=== PATIENT | male | born 1985 | race American Indian/Alaskan Native ===

== ENCOUNTER 2019-08-28 17:35 | Inpatient (IN) | payer SELFPAY ==
--- NOTE | 2019-08-28 19:33 | Ultrasound Report ---
US testicular doppler comp INDICATION / CLINICAL INFORMATION: TESTICULAR PAIN. COMPARISON: None available. FINDINGS: Testicular size and echogenicity is normal bilaterally. Doppler imaging shows normal testicular blood flow. No epididymal lesions. No evidence of hydrocele. IMPRESSION: 1. No evidence of testicular torsion or other scrotal abnormality. Signer Name: Nicolas Delaney MD Signed: 08/28/2019 7:28 PM Workstation Name: [id number]
[2019-08-28] MEDS ORDERED: SODIUM CHLORIDE 0.9% 1000 ML 1,000 ML IV ONE (19:34)
[2019-08-28 19:43] LABS: Basophils # (Auto) 0.1 K/mm3 (0.0-0.1); Basophils % (Auto) 1.2 % (0.0-1.8); Eosinophils # (Auto) 0.3 K/mm3 (0.0-0.4); Eosinophils % (Auto) 4.4 % (0.0-4.3); Hematocrit 44.7 % (35.5-45.6); Hemoglobin 15.2 gm/dl (11.8-15.2); Lymphocytes # (Auto) 2.5 K/mm3 (1.2-5.4); Mean Corpuscular HGB Conc 34 % (32-34); Mean Corpuscular Volume 87 fl (84-94); Monocytes # (Auto) 0.8 K/mm3 (0.0-0.8); Monocytes % (Auto) 10.6 % (0.0-7.3); Platelet Count 292 K/mm3 (140-440); Red Blood Count 5.13 M/mm3 (3.65-5.03); Red Cell Distribution Width 13.8 % (13.2-15.2)
--- NOTE | 2019-08-28 19:49 | Emergency Department Report ---
ED General Adult HPI - General Chief complaint: Medical Clearance Stated complaint: INGUINAL HERNIA Source: patient Mode of arrival: Ambulatory Limitations: No Limitations - History of Present Illness Initial comments: Patient is a 33-year-old male that presents emergency room with complaints of a inguinal hernia extending down to his right scrotum. Patient states that he's had this for at least 10 years but in the past 3 days it started hurting. Patient states normally he is able to push on his hernia" back into place. Patient states over the last 3 days she has not been able to reduce it. Patient states the pain is a 10 out of 10. Patient states pain is worse with movement and palpation. Patient states the pain is better with rest and not moving and not touching it. Patient denies fever and chills. Patient denies nausea or vomiting. Patient denies constipation. Patient states she's having regular bowel movements. Patient denies any other symptoms or complaints. -: Sudden Location: genitals Severity scale (0 -10): 10 Quality: stabbing Consistency: constant Improves with: rest Worsens with: movement, other Associated Symptoms: denies other symptoms. denies: confusion, chest pain, cough, diaphoresis, fever/chills, headaches, loss of appetite, malaise, nausea/vomiting, rash, seizure, shortness of breath, syncope, weakness - Related Data Home Medications Medication Instructions Recorded Confirmed Last Taken No Known Home Medications [No 08/29/19 08/29/19 Unknown Reported Home Medications] Allergies Allergy/AdvReac Type Severity Reaction Status Date / Time No Known Allergies Allergy Verified 08/28/19 17:53 ED Review of Systems ROS: Stated complaint: INGUINAL HERNIA Other details as noted in HPI Constitutional: denies: chills, fever Eyes: denies: eye pain, eye discharge, vision change ENT: denies: ear pain, throat pain Respiratory: denies: cough, shortness of breath, wheezing Cardiovascular: denies: chest pain, palpitations Endocrine: no symptoms reported Gastrointestinal: denies: abdominal pain, nausea, diarrhea Genitourinary: testicular pain, testicular mass. denies: urgency, dysuria Musculoskeletal: denies: back pain, joint swelling, arthralgia Skin: denies: rash, lesions Neurological: denies: headache, weakness, paresthesias Psychiatric: denies: anxiety, depression Hematological/Lymphatic: denies: easy bleeding, easy bruising ED Past Medical Hx - Past Medical History Previous Medical History?: No - Surgical History Past Surgical History?: No - Family History Family history: no significant - Social History Smoking Status: Current Every Day Smoker Substance Use Type: Alcohol - Medications Home Medications: Home Medications Medication Instructions Recorded Confirmed Last Taken Type No Known Home Medications [No 08/29/19 08/29/19 Unknown History Reported Home Medications] ED Physical Exam - General Limitations: No Limitations General appearance: alert, in no apparent distress - Head Head exam: Present: atraumatic, normocephalic - Eye Eye exam: Present: normal appearance - ENT ENT exam: Present: mucous membranes moist - Neck Neck exam: Present: normal inspection - Respiratory Respiratory exam: Present: normal lung sounds bilaterally. Absent: respiratory distress - Cardiovascular Cardiovascular Exam: Present: regular rate, normal rhythm. Absent: systolic murmur, diastolic murmur, rubs, gallop - GI/Abdominal GI/Abdominal exam: Present: soft, normal bowel sounds. Absent: distended, tenderness, guarding - Rectal Rectal exam: Present: deferred - exam: Present: testicular tenderness, scrotal swelling, circumcision, other (large inguinal hernia noted within the right scrotum. Tenderness over the right scrotum. Unable to palpate right testicle due to size of herniation. Left testicle normal. Penis normal). Absent: urethral discharge - Extremities Exam Extremities exam: Present: normal inspection - Back Exam Back exam: Present: normal inspection - Neurological Exam Neurological exam: Present: alert, oriented X3 - Psychiatric Psychiatric exam: Present: normal affect, normal mood - Skin Skin exam: Present: warm, dry, intact, normal color. Absent: rash ED Course Vital Signs 08/28/19 08/29/19 17:55 00:20 Temperature 98.2 F 98.2 F Pulse Rate 64 52 L Respiratory 18 18 Rate Blood Pressure 126/81 131/78 [Right] O2 Sat by Pulse 100 100 Oximetry - Reevaluation(s) Reevaluation #1: I discussed all results and plan of care with patient. Patient agrees with plan of care and admission. Patient will be admitted to the hospitalist service. Patient states she would like something for pain. Patient's hernia is still not reducible. 08/28/19 22:26 - Consultations Consultation #1: I discussed case with Dr. Everett, general surgery. Dr. Everett recommends IV contrast CT scan and labs. 08/28/19 19:[address] results with Dr. Everett and Dr. Everett recommends admission and he will see the patient the morning for possible surgery. Patient to be nothing by mouth after midnight 08/28/19 22:25 Consultation #2: Hospitalist consult for admission. Hospitalist to admit patient. 08/28/19 22:28 ED Medical Decision Making - Lab Data Result diagrams: 08/28/19 19:31 08/28/19 19:31 - Radiology Data Radiology results: report reviewed CT abdomen pelvis w con INDICATION / CLINICAL INFORMATION: Inguinal hernia. TECHNIQUE: All CT scans at this location are performed using CT dose reduction for ALARA by means of automated exposure control. COMPARISON: None available. FINDINGS: The lower lungs are clear. ABDOMEN: Small hepatic cyst is demonstrated. No other liver abnormalities. The gallbladder, spleen, pancreas and kidneys are normal. No retroperitoneal adenopathy. No small bowel distention. Minimal upper abdominal ascites is seen along the inferior margin of the liver. Pelvis: There is a very large right inguinal hernia containing multiple nonobstructed loops of small bowel and a portion of sigmoid colon. There is a fluid within the hernia sac. No soft tissue edema is seen in the inguinal area The appendix is normal. There are no significant free fluid collections seen in the pelvis. No skeletal abnormality. IMPRESSION: 1. Large right inguinal hernia containing nonobstructed small bowel and a segment of sigmoid colon. 2. No other significant abdominal or pelvic abnormalities. US testicular doppler comp INDICATION / CLINICAL INFORMATION: TESTICULAR PAIN. COMPARISON: None available. FINDINGS: Testicular size and echogenicity is normal bilaterally. Doppler imaging shows normal testicular blood flow. No epididymal lesions. No evidence of hydrocele. IMPRESSION: 1. No evidence of testicular torsion or other scrotal abnormality. - Medical Decision Making is a 33-year-old male that presents emergency room with hernia pain. Patient has nonreducible inguinal hernia extending down into the scrotum. Patient had labs unremarkable. Patient had a scrotal Done Which Was Negative for Compromises Testicles. Patient Had a CT Scan Which Shows Large and Small Bowel in the Inguinal Canal Extending down into the Scrotum. No Signs of Any Ischemia. I discussed case with general surgery. I discussed all results with general surgery. General surgery recommends admission and possible surgery in the morning. Patient will be placed nothing by mouth after midnight. Patient given pain medications and fluids. Patient admitted to the hospitalist service. - Differential Diagnosis incarcerated hernia. Hernia. Hernia pain. Testicular pain. Scrotal pain Critical Care Time: Yes Critical care attestation.: If time is entered above; I have spent that time in minutes in the direct care of this critically ill patient, excluding procedure time. Critical Care Time: 35 minutes ED Disposition Clinical Impression: Pain, scrotum, Hernia Inguinal hernia Qualifiers: Obstruction and gangrene presence: without obstruction or gangrene Laterality: unilateral Recurrence: recurrent Qualified Code(s): K40.91 - Unilateral inguinal hernia, without obstruction or gangrene, recurrent Disposition: DC-09 OP ADMIT IP TO THIS HOSP Is pt being admited?: Yes Does the pt Need Aspirin: No Condition: Critical Time of Disposition: 22:28
[2019-08-28 20:07] LABS: Alanine Aminotransferase 18 units/L (7-56); Albumin 4.3 g/dL (3.9-5); BUN/Creatinine Ratio 15; Blood Urea Nitrogen 12 mg/dL (9-20); Hemolysis Index 14
--- NOTE | 2019-08-28 21:54 | Cat Scan Report ---
CT abdomen pelvis w con INDICATION / CLINICAL INFORMATION: Inguinal hernia. TECHNIQUE: All CT scans at this location are performed using CT dose reduction for ALARA by means of automated e xposure control. COMPARISON: None available. FINDINGS: The lower lungs are clear. ABDOMEN: Small hepatic cyst is demonstrated. No other liver abnormalities. The gallbladder, spleen, pancreas and kidneys are normal. No retroperitoneal adenopathy. No small bowel distention. Minimal upper abdominal ascites is seen along the inferior margin of the liver. Pelvis: There is a very large right inguinal hernia containing multiple nonobstructed loops of small bowel an d a portion of sigmoid colon. There is a fluid within the hernia sac. No soft tissue edema is seen in the inguinal area The appendix is normal. There are no significant free fluid collections seen in the pelvis. No skeletal abnormality. IMPRESSION: 1. Large right inguinal hernia containing nonobstructed small bowel and a segment of sigmoid colon. 2. No other significant abdominal or pelvic abnormalities. Signer Name: Nicolas Delaney MD Signed: 08/28/2019 9:50 PM Workstation Name: [id number]
[2019-08-28] MEDS ORDERED: ACETAMINOPHEN 325 MG TAB PO PRN (22:43)
[2019-08-28] MEDS ORDERED: oxyCODONE /ACETAMINOPHEN 5-325MG TAB PO PRN (22:43)
[2019-08-28] MEDS ORDERED: ONDANSETRON 4 MG/2 ML INJ IV PRN (22:43)
--- NOTE | 2019-08-28 22:50 | History and Physical Report ---
History of Present Illness Date of examination: 08/28/19 History of present illness: 33 -year-old male with no medical problems comes emergency room for evaluation of his hernia. He stated that he is admitted for a long time, it's gotten bigger over time and he is constantly in pain. He is having difficulty working because of the pain Review Of Systems: Constitutional: no weight loss, fever, chills Ears, eyes, nose, mouth and throat: no nasal congestion, no nasal discharge, no sinus pressure, blurry vision, diplopia Neck: No neck pain or rigidity. Cardiovascular: No palpitations, chest pain Respiratory: No shortness of breath, cough Gastrointestinal: No hematochezia, abdominal pain Genitourinary : no dysuria, frequency , hematuria Musculoskeletal: no muscle ache , joint pain Integumentary: no rash, no pruritis Neurological: no parathesias, focal weakness Endocrine: no cold or heat intolerance, no polyuria or polydipsia Hematologic/Lymphatic: no easy bruising, no easy bleeding, no gland swelling Allergic/Immunologic: no urticaria, no angioedema. PAST MEDICAL HISTORY:none PAST SURGICAL HISTORY:none FAMILY HISTORY:hypertension, diabetes SOCIAL HISTORY: + tobacco, no drugs, + alcohol Medications and Allergies Allergies Allergy/AdvReac Type Severity Reaction Status Date / Time cashew nut Allergy Angioedema Verified 08/29/19 05:07 shellfish derived AdvReac Angioedema Verified 08/29/19 05:07 Home Medications Medication Instructions Recorded Confirmed Last Taken Type oxyCODONE /ACETAMINOPHEN [Percocet 1 tab PO Q6H PRN #20 tablet 08/29/19 Unknown Rx 5/325 mg] Active Meds: Active Medications Acetaminophen (Tylenol) 650 mg PO Q4H PRN PRN Reason: Pain MILD(1-3)/Fever >100.5/LI Sodium Chloride (Nacl 0.45% 1000 Ml) 1,000 mls @ 75 mls/hr IV DIRECT JOHN Ondansetron HCl (Zofran) 4 mg IV Q8H PRN PRN Reason: Nausea And Vomiting Oxycodone/Acetaminophen (Percocet 5/325) 1 tab PO Q6H PRN PRN Reason: Pain, Moderate (4-6) Sodium Chloride (Sodium Chloride Flush Syringe 10 Ml) 10 ml IV BID JOHN Sodium Chloride (Sodium Chloride Flush Syringe 10 Ml) 10 ml IV PRN PRN PRN Reason: LINE FLUSH Exam - Physical Exam Narrative exam: General Apperance: The patient sitting in bed no acute distress HEENT: Normocephalic, atraumatic. Pupils equally round and reactive to light, extraocular movement intact, and no sclericterus or JVD or thyromegaly or nodule. Neck supple, no carotid bruit, mucous membranes moist, no exudate or erythema Heart: S1-S2, regular is rhythm Lungs: Clear to auscultation bilaterally, breathing comfortable Abdomen: Positive bowel sounds, soft, nontender, nondistended, no organomegaly Extremities: Enlarged right scrotum No edema cyanosis clubbing Skin: no rash, nodule, warm and dry Neuro:CN 2 -12 intact, motor/sensory intact, speech is fluent - Constitutional Vitals: Temp Pulse Resp BP Pulse Ox 98.2 F 64 18 126/81 100 08/28/19 17:55 08/28/19 17:55 08/28/19 17:55 08/28/19 17:55 08/28/19 17:55 Results - Labs CBC & Chem 7: 08/29/19 05:23 08/29/19 05:23 Labs: Abnormal lab results 08/28/19 Range/Units 19:31 RBC 5.13 H (3.65-5.03) M/mm3 [place] % (Auto) 10.6 H (0.0-7.3) % Eos % (Auto) 4.4 H (0.0-4.3) % - Imaging and Cardiology CT scan - abdomen: report reviewed CT scan - pelvis: report reviewed Assessment and Plan Testicular ultrasound reviewed Assessment Large hernia with bowel loops Plan Admit to medicine Nothing by mouth, IV fluid, surgery was consulted to see the patient Percocet, DVT prophylaxis
[2019-08-28] MEDS ORDERED: HYDROmorphone 1 MG/1 ML INJ IV ONE (22:54)
[2019-08-28] MEDS ORDERED: SODIUM CHLORIDE 0.45% 1000 ML 1,000 ML IV SCH (23:00)
[2019-08-29 06:02] LABS: Basophils # (Auto) 0.1 K/mm3 (0.0-0.1); Basophils % (Auto) 0.9 % (0.0-1.8); Eosinophils # (Auto) 0.4 K/mm3 (0.0-0.4); Hemoglobin 14.3 gm/dl (11.8-15.2); Lymphocytes # (Auto) 2.7 K/mm3 (1.2-5.4); Lymphocytes % (Auto) 36.9 % (13.4-35.0); Mean Corpuscular HGB Conc 34 % (32-34); Mean Corpuscular Volume 86 fl (84-94); Monocytes # (Auto) 0.7 K/mm3 (0.0-0.8); Monocytes % (Auto) 9.8 % (0.0-7.3); Platelet Count 259 K/mm3 (140-440); Red Blood Count 4.88 M/mm3 (3.65-5.03); Red Cell Distribution Width 13.8 % (13.2-15.2)
[2019-08-29 06:13] LABS: Bilirubin,Urine NEG (Negative); Blood,Urine NEG (Negative); Color,Urine Yellow (Yellow); Mucus,Urine FEW /HPF; Protein,Urine <15 mg/dL mg/dL (Negative); Urobilinogen,Urine < 2.0 mg/dL (<2.0)
[2019-08-29 06:17] LABS: BUN/Creatinine Ratio 14; Blood Urea Nitrogen 11 mg/dL (9-20); Calcium 8.4 mg/dL (8.4-10.2); Hemolysis Index 3
--- NOTE | 2019-08-29 07:38 | Consultation ---
History of Present Illness Consult date: 08/29/19 Reason for consult: hernia Requesting physician: REBEKAH MCGILL III Chief complaint: right inguinal hernia - History of present illness History of present illness: 33yo M with a 15 yr h/o a progressively increasing bulge in the right groin/scrotal area. Has low grade discomfort usually. Yesterday, patient was in severe pain that prompted a visit to the ED. CT was done which showed a large and small bowel in the scrotum. No evidence of obstruction. Gen surg was consulted for this. Pt reports that his pain is back to baseline (minimal). No N/V/generalized abdominal pain. Had normal BM yesterday. Due to social situation and fear of surgery, he was not set up for surgery in the past. Past History Past Medical History: No medical history Past Surgical History: No surgical history Social history: smoking (13-12ppd). denies: alcohol abuse, prescription drug abuse, IV drug use Family history: no significant family history Medications and Allergies Allergies Allergy/AdvReac Type Severity Reaction Status Date / Time cashew nut Allergy Angioedema Verified 08/29/19 05:07 shellfish derived AdvReac Angioedema Verified 08/29/19 05:07 Home Medications Medication Instructions Recorded Confirmed Last Taken Type No Known Home Medications [No 08/29/19 08/29/19 Unknown History Reported Home Medications] Active Meds: Active Medications Acetaminophen (Tylenol) 650 mg PO Q4H PRN PRN Reason: Pain MILD(1-3)/Fever >100.5/LI Enoxaparin Sodium (Lovenox) 40 mg SUB-Q QDAY JOHN Sodium Chloride (Nacl 0.45% 1000 Ml) 1,000 mls @ 75 mls/hr IV DIRECT JOHN Last Admin: 08/29/19 02:06 Dose: 75 mls/hr Documented by: Ondansetron HCl (Zofran) 4 mg IV Q8H PRN PRN Reason: Nausea And Vomiting Oxycodone/Acetaminophen (Percocet 5/325) 1 tab PO Q6H PRN PRN Reason: Pain, Moderate (4-6) Sodium Chloride (Sodium Chloride Flush Syringe 10 Ml) 10 ml IV BID JOHN Sodium Chloride (Sodium Chloride Flush Syringe 10 Ml) 10 ml IV PRN PRN PRN Reason: LINE FLUSH Last Admin: 08/29/19 02:06 Dose: 10 ml Documented by: Review of Systems - Constitutional chronic pain, no fever, no chills - Cardiovascular no chest pain, no shortness of breath - Respiratory no cough - Gastrointestinal no abdominal pain, no nausea, no vomiting, no change in bowel habits, no loss of appetite, no dyspepsia/bloating - Genitourinary no dysuria, no urinary retention - Integumentary no rash, no redness, no wounds - Hematologic/Lymphatic no easy bruising, no easy bleeding Exam Vital Signs Temp Pulse Resp BP Pulse Ox 98.2 F 64 18 126/81 100 08/28/19 17:55 08/28/19 17:55 08/28/19 17:55 08/28/19 17:55 08/28/19 17:55 - General physical appearance Positive: well developed, well nourished, no distress, no pain, other (smiling in bed. very pleasant). Negative: chronically ill - Eyes Positive: normal occular movement - Neck Positive: trachea midline - Respiratory Positive: normal expansion, normal respiratory effort, clear to auscultation - Cardiovascular Rhythm: regular - Extremities Extremities: no ischemia, No edema, normal temperature, normal color - Abdomen Abdomen: Present: soft, bowel sounds normal. Absent: tender, distended, guarding, rigid, wound, surgical scars Hernia: scrotal (able to reduce RIH with patient in trendelenburg position.) - Genitourinary Male Genitourinary: right inguinal hernia - Integumentary no rash, no growths, no abnormal pigmentation - Neurologic Neurologic: alert and oriented to time, place and person, motor strength and sensation are grossly intact - Psychiatric Psychiatric: appropriate mood/affect, intact judgment & insight, cooperative Results - Labs 08/29/19 05:23 08/29/19 05:23 Abnormal lab results 08/28/19 08/29/19 08/29/19 Range/Units 19:31 05:23 05:23 RBC 5.13 H (3.65-5.03) M/mm3 Lymph % (Auto) 36.9 H (13.4-35.0) % [place] % (Auto) 10.6 H 9.8 H (0.0-7.3) % Eos % (Auto) 4.4 H 5.0 H (0.0-4.3) % Potassium 3.5 L (3.6-5.0) mmol/L Ur Specific [place] (1.003-1.030) 08/29/19 Range/Units 05:50 RBC (3.65-5.03) M/mm3 Lymph % (Auto) (13.4-35.0) % [place] % (Auto) (0.0-7.3) % Eos % (Auto) (0.0-4.3) % Potassium (3.6-5.0) mmol/L Ur Specific [place] 1.051 H (1.003-1.030) Diabetes panel 08/28/19 08/29/19 Range/Units 19:31 05:23 Sodium 139 141 (137-145) mmol/L Potassium 4.0 3.5 L (3.6-5.0) mmol/L Chloride 101.6 104.5 (98-107) mmol/L Carbon Dioxide 25 24 (22-30) mmol/L BUN 12 11 (9-20) mg/dL Creatinine 0.8 0.8 (0.8-1.5) mg/dL Glucose 89 88 (75-100) mg/dL Calcium 9.0 8.4 (8.4-10.2) mg/dL AST 20 (5-40) units/L ALT 18 (7-56) units/L Alkaline Phosphatase 83 (35-129) units/L Total Protein 7.2 (6.3-8.2) g/dL Albumin 4.3 (3.9-5) g/dL Calcium panel 08/28/19 08/29/19 Range/Units 19:31 05:23 Calcium 9.0 8.4 (8.4-10.2) mg/dL Albumin 4.3 (3.9-5) g/dL Pituitary panel 08/28/19 08/29/19 Range/Units 19:31 05:23 Sodium 139 141 (137-145) mmol/L Potassium 4.0 3.5 L (3.6-5.0) mmol/L Chloride 101.6 104.5 (98-107) mmol/L Carbon Dioxide 25 24 (22-30) mmol/L BUN 12 11 (9-20) mg/dL Creatinine 0.8 0.8 (0.8-1.5) mg/dL Glucose 89 88 (75-100) mg/dL Calcium 9.0 8.4 (8.4-10.2) mg/dL Adrenal panel 08/28/19 08/29/19 Range/Units 19:31 05:23 Sodium 139 141 (137-145) mmol/L Potassium 4.0 3.5 L (3.6-5.0) mmol/L Chloride 101.6 104.5 (98-107) mmol/L Carbon Dioxide 25 24 (22-30) mmol/L BUN 12 11 (9-20) mg/dL Creatinine 0.8 0.8 (0.8-1.5) mg/dL Glucose 89 88 (75-100) mg/dL Calcium 9.0 8.4 (8.4-10.2) mg/dL Total Bilirubin 0.60 (0.1-1.2) mg/dL AST 20 (5-40) units/L ALT 18 (7-56) units/L Alkaline Phosphatase 83 (35-129) units/L Total Protein 7.2 (6.3-8.2) g/dL Albumin 4.3 (3.9-5) g/dL - Imaging CT scan - abdomen: report reviewed, image reviewed CT scan - pelvis: report reviewed, image reviewed Assessment and Plan - Patient Problems (1) Scrotal hernia Current Visit: Yes Status: Acute Plan to address problem: Pt stable. He has an acute on chronic exacerbation of his right inguinal-scrotal hernia. Pt in need of repair. Procedure, risks, benefits discussed. All questions answered. Consent obtained. Pt at increased risk for issues such as infection, wound problems, recurrence, etc., due to active smoking. Discussed in detail with the patient. He understands. Proceed to OR when opening available. Please call with questions. Time=45min
[2019-08-29] MEDS ORDERED: ACETAMINOPHEN 500 MG TAB PO NR (08:55)
[2019-08-29] MEDS ORDERED: CELECOXIB 200 MG CAP PO NR (09:00)
[2019-08-29] MEDS ORDERED: GABAPENTIN 300 MG CAP PO SCH (09:00)
[2019-08-29] MEDS ORDERED: ceFAZolin/Water 2 GM/20 ML 2 GM/20 ML SYRINGE IV NR (10:00)
[2019-08-29] MEDS ORDERED: ENOXAPARIN 40 MG/0.4 ML INJ SUB-Q SCH (10:00)
[2019-08-29] MEDS ORDERED: HYDROmorphone 1 MG/1 ML INJ IV PRN (12:29)
[2019-08-29] MEDS ORDERED: ONDANSETRON 4 MG/2 ML INJ IV PRN (12:29)
[2019-08-29] MEDS ORDERED: fentaNYL 100 MCG/2 ML INJ IV PRN (12:29)
--- NOTE | 2019-08-29 12:32 | Anesthesia Day of Surgery ---
Anesthesia Day of Surgery - Day of Surgery Patient Examined: Yes Patient H&P Reviewed: Yes Patient is NPO: Yes
--- NOTE | 2019-08-29 12:35 | Anesthesia Consultation ---
Anesthesia Consult and Med Hx Date of service: 08/29/19 - Airway Anesthetic Teeth Evaluation: Good ROM Head & Neck: Adequate Mental/Hyoid Distance: Adequate Mallampati Class: Class II Intubation Access Assessment: Good - Pre-Operative Health Status ASA Pre-Surgery Classification: ASA2 Proposed Anesthetic Plan: General - Pulmonary Hx Smoking: Yes (current smoker) Hx Asthma: No (Childhood) COPD: No Hx Pneumonia: No - Cardiovascular System Hx Coronary Artery Disease: No Hx Heart Attack/AMI: No Hx Angina: No Hx Percutaneous Transluminal Coronary Angioplasty (PTCA): No Hx Pacemaker: No Hx Internal Defibrillator: No Hx Valvular Heart Disease: No Hx Heart Murmur: No Hx Peripheral Vascular Disease: No - Central Nervous System Hx Seizures: No Hx Psychiatric Problems: No - Endocrine Hx Renal Disease: No Hx End Stage Renal Disease: No Hx Hypothyroidism: No Hx Hyperthyroidism: No - Hematic Hx Anemia: No
[2019-08-29] MEDS ORDERED: LACTATED RINGERS 1,000 ML ONE (12:59)
[2019-08-29] MEDS ORDERED: LACTATED RINGERS 1,000 ML IV SCH (14:00)
[2019-08-29] MEDS ORDERED: LIDOCAINE (1%) 10 MG/1 ML VIAL 20 ML MDV ONE (14:07)
[2019-08-29] MEDS ORDERED: BUPIVACAINE/PF (0.5%) 5 MG/1 ML 30 ML VIAL INFILTRATI ONE ×2 (14:07→15:33)
[2019-08-29] MEDS ORDERED: ROCURONIUM 50 MG/5 ML INJ IV ONE (14:07)
[2019-08-29] MEDS ORDERED: HYDROmorphone 1 MG/1 ML INJ ONE (14:07)
[2019-08-29] MEDS ORDERED: LIDOCAINE MPF (2%) 20 MG/1 ML VIAL 5 ML ONE (14:07)
[2019-08-29] MEDS ORDERED: fentaNYL 100 MCG/2 ML INJ ONE ×2 (14:08→16:46)
[2019-08-29] MEDS ORDERED: PROPOFOL 200 MG/20 ML VIAL IV ONE (14:08)
[2019-08-29] MEDS ORDERED: dexAMETHasone 20 MG/5 ML VIAL ONE (14:50)
[2019-08-29] MEDS ORDERED: ONDANSETRON 4 MG/2 ML INJ ONE (14:50)
--- NOTE | 2019-08-29 15:06 | Progress Note ---
Subjective Date of service: 08/29/19 Objective - Constitutional Vitals: Vital Signs - 12hr 08/29/19 08/29/19 08/29/19 04:38 07:44 08:39 Temperature 97.8 F 97.9 F Pulse Rate 52 L 52 L Respiratory 16 20 Rate Blood Pressure 125/87 137/86 O2 Sat by Pulse 100 95 100 Oximetry 08/29/19 08/29/19 08/29/19 11:27 12:50 13:02 Temperature 98.2 F 98.3 F Pulse Rate 48 L 61 Respiratory 20 18 16 Rate Blood Pressure 143/79 133/81 O2 Sat by Pulse 100 100 Oximetry 08/29/19 13:03 Temperature Pulse Rate Respiratory 18 Rate Blood Pressure O2 Sat by Pulse Oximetry General appearance: Present: no acute distress, well-nourished - EENT Eyes: PERRL, EOM intact ENT: hearing intact, clear oral mucosa Ears: bilateral: normal - Neck Neck: supple, normal ROM - Respiratory Respiratory effort: normal Respiratory: bilateral: CTA - Breasts Breasts: normal - Cardiovascular Rhythm: regular Heart Sounds: Present: S1 & S2. Absent: gallop, rub Extremities: pulses intact, No edema, normal color, Full ROM - Gastrointestinal General gastrointestinal: Present: soft, non-tender, non-distended, normal bowel sounds - Genitourinary Male genitourinary: normal - Integumentary Integumentary: clear, warm, dry - Musculoskeletal Musculoskeletal: 1, strength equal bilaterally - Neurologic Neurologic: moves all extremities - Psychiatric Psychiatric: memory intact, appropriate mood/affect, intact judgment & insight - Labs CBC & Chem 7: 08/29/19 05:23 08/29/19 05:23 Labs: Abnormal lab results 08/28/19 08/29/19 08/29/19 Range/Units 19:31 05:23 05:23 RBC 5.13 H (3.65-5.03) M/mm3 Lymph % (Auto) 36.9 H (13.4-35.0) % [place] % (Auto) 10.6 H 9.8 H (0.0-7.3) % Eos % (Auto) 4.4 H 5.0 H (0.0-4.3) % Potassium 3.5 L (3.6-5.0) mmol/L Ur Specific [place] (1.003-1.030) 08/29/19 Range/Units 05:50 RBC (3.65-5.03) M/mm3 Lymph % (Auto) (13.4-35.0) % [place] % (Auto) (0.0-7.3) % Eos % (Auto) (0.0-4.3) % Potassium (3.6-5.0) mmol/L Ur Specific [place] 1.051 H (1.003-1.030)
[2019-08-29] MEDS ORDERED: SODIUM CHLORIDE 0.9% IRR 1,500 ML BOTTLE IR ONE (15:10)
[2019-08-29] MEDS ORDERED: LIDOCAINE (1%) 10 MG/1 ML VIAL 20 ML MDV INFILTRATI ONE (15:33)
[2019-08-29] MEDS ORDERED: NEOSTIGMINE 10MG/10 ML INJ MDV ONE (17:06)
[2019-08-29] MEDS ORDERED: GLYCOPYRROLATE 0.4 MG/2 ML INJ ONE (17:06)
[2019-08-29] MEDS ORDERED: oxyCODONE /ACETAMINOPHEN 5-325MG TAB PO PRN (17:48)
--- NOTE | 2019-08-29 17:48 | Post Operative Note ---
Date of procedure: 08/29/19 Pre-op diagnosis: right inguinoscrotal hernia Post-op diagnosis: same Findings: Durect inguinoscrotal hernia containing bowel with large chronically scarred hernia sac Procedure: robotic assisted right inguinal hernia repair with mesh Anesthesia: RITO local Surgeon: JAMES UMANZOR [employer]herette Machine Operator: LESLEE CHERRY Estimated blood loss: minimal Pathology: none Condition: stable Disposition: PACU
[2019-08-29 19:38] VITALS: BP 141/87
--- NOTE | 2019-08-29 23:04 | Post Anesthesia Evaluation ---
- Post Anesthesia Evaluation Patient Participated: Yes Airway Patent: Yes Stable Respiratory Function: Yes Nausea/Vomiting: No Temp > 96.8F: Yes Pain Manageable: Yes Adequeate Hydration: Yes Anesthesia Complications: No Block Receding Appropriately: Not Applicable Patient on Ventilator: No
--- NOTE | 2019-08-30 12:41 | Discharge Summary ---
Providers - Providers Date of Admission: 08/28/19 22:43 Date of discharge: 08/29/19 Attending physician: SAMANTHA MEJIA 08/28/19 22:43 Consult to Physician [CONS] Routine Comment: Consulting Provider: CHERIE PAGAN Physician Instructions: Reason For Exam: hernia Primary care physician: [facility] Hospitalization Condition: Good Procedures: Direct inguinoscrotal hernia containing bowel with large chronically scarred hernia sac Robotic assisted right inguinal hernia repair with mesh Hospital course: 33 -year-old male with no medical problems comes emergency room for evaluation of his hernia. He stated that he has this hernia for a long time, it's gotten bigger over time and he is constantly in pain. He is having difficulty working because of the pain Direct inguinoscrotal hernia containing bowel with large chronically scarred hernia sac Robotic assisted right inguinal hernia repair with mesh Postop doing well Disposition: DC- TO HOME OR SELFCARE Core Measure Documentation - Palliative Care Palliative Care/ Comfort Measures: Not Applicable - Core Measures Any of the following diagnoses?: none Exam - Constitutional Vitals: Temp Pulse Resp BP Pulse Ox 97.8 F 89 17 141/87 100 08/29/19 19:36 08/29/19 19:36 08/29/19 19:36 08/29/19 19:36 08/29/19 19:36 General appearance: Present: no acute distress, well-nourished - EENT Eyes: Present: PERRL ENT: hearing intact, clear oral mucosa - Neck Neck: Present: supple, normal ROM - Respiratory Respiratory effort: normal Respiratory: bilateral: CTA - Cardiovascular Heart rate: 78 Rhythm: regular Heart Sounds: Present: S1 & S2. Absent: rub, click - Extremities Extremities: pulses symmetrical, No edema Peripheral Pulses: within normal limits - Abdominal General gastrointestinal: Present: soft, non-tender, non-distended, normal bowel sounds Male genitourinary: Present: normal - Rectal Rectal Exam: deferred - Integumentary Integumentary: Present: clear, warm, dry - Musculoskeletal Musculoskeletal: gait normal, strength equal bilaterally - Psychiatric Psychiatric: appropriate mood/affect, intact judgment & insight - Neurologic Neurologic: CNII-XII intact, moves all extremities - Allied Health Allied health notes reviewed: nursing, case management Plan Activity: advance as tolerated Weight Bearing Status: Weight Bear as Tolerated Diet: regular Plan of Treatment: Smoking cessation Follow up with: JAMES UMANZOR DO [Staff Physician] - 14 Days PRIMARY CARE, [Primary Care Provider] - 7 Days Prescriptions: oxyCODONE /ACETAMINOPHEN [Percocet 5/325 mg] 1 tab PO Q6H PRN #20 tablet PRN Reason: Pain, Moderate (4-6)
--- NOTE | 2019-09-01 11:54 | Operative Report ---
PREOPERATIVE DIAGNOSIS: Right inguinoscrotal hernia. POSTOPERATIVE DIAGNOSIS: Right inguinoscrotal hernia. FINDINGS: Direct inguinoscrotal hernia containing bowel with large chronically scarred hernia sac. PROCEDURE: Robotic-assisted right inguinal hernia repair with mesh. ANESTHESIA: General endotracheal anesthesia, local. SURGEON: Mariam Johns DO MALARIOLOGIST: Gifty Palmer MD ESTIMATED BLOOD LOSS: Minimal. PATHOLOGY: None. CONDITION AND DISPOSITION: The patient is stable to PACU. HISTORY OF PRESENT ILLNESS AND INDICATION: The patient is a 33-year-old male who has had a 15-year history of progressively increasing bulge in his right groin and scrotal area. The patient came into the Emergency Room with severe pain in this area and had a CT scan done, which showed a large and small bowel in the scrotum. There was no evidence of obstruction. On physical exam, the hernia was reducible and the patient's pain returned to baseline. He had no nausea or vomiting. Due to the acute on chronic exacerbation of the right inguinal scrotal hernia, it was recommended the patient be admitted for repair. All risks, benefits, alternatives to surgery were discussed with the patient and questions answered. Consent was obtained. PROCEDURE IN DETAIL: The patient was identified in the preoperative area and taken back to the operating room and placed on the operating table in supine position. After anesthesia was induced, a Ford catheter was sterilely placed by the circulating nurse and then both arms were tucked and all bony prominences padded appropriately. The abdomen and the right groin were prepped and draped in the usual sterile fashion and a timeout performed. A local anesthetic was infiltrated to all skin incision sites prior to incision. A 12 mm incision was made above the umbilicus through which a Veress needle was inserted. The Veress needle position was confirmed using saline drop test and the abdomen insufflated to 15 mmHg. Once the abdomen was insufflated, the Veress needle was removed and 12 mm balloon Optiview trocar was placed through this incision. The abdomen was inspected. There was no underlying injury to any of the abdominal structures. The patient was placed in Trendelenburg and the right inguinoscrotal hernia was visualized. There was small and large bowel going into the hernia. The left inguinal area was inspected. There was no hernia at that site. Two 8mm robotic trocars were placed, one in the right upper, one in the left upper quadrant under direct visualization. A Ray-Rex was placed into the abdomen and the hernia was manually reduced. The robot was then docked and the surgeon transferred to the console. A fenestrated bipolar grasper was placed in arm #2 and a monopolar scissor in arm #1. Approximately 6-7 cm from the right inguinal region, a preperitoneal flap was developed from the median umbilical ligament to the ASIS. The peritoneum was scored with the scissors and then the preperitoneal flap created and using a combination of blunt dissection and electrocautery. Hemostasis was achieved along the way. First, I created the lateral aspect of the flap with great care in order to avoid injury to any nerves. Then, I created the medial portion of the flap and dissected down towards Jerrell's ligament and the pubic bone. Once this anatomy was visualized, the pubic tubercle was cleared of any overlying tissue. The dissection was carried out medially inferior to the bladder in order to have space for the medial aspect of the mesh. I then started a slow and meticulous dissection of the hernia sac. The hernia sac was chronically incarcerated and showed evidence of scarring. The cord structures were covered by this very large hernia sac. The assistant women's rowing coach surgeon applied manual pressure from the scrotum and inguinal canal in order to better help reduce the chronically incarcerated bowel. The hernia sac was dissected by taking down the cremasteric muscles laterally and medially. Due to the large and chronically scarred nature of the sac once it was mostly reduced it was transected. The vas deferens and cord structures were identified and protected. Once the sac was transected, the peritoneum was completely reduced. There was a large direct hernia defect seen. No indirect component. There was no cord lipoma. The cord structures were once again seen and protected. At this point, the pocket was checked for hemostasis, which was carefully ensured. A large right-sided 3DMax mesh was chosen to repair the hernia. This was placed into the abdomen along with suture material. The mesh was placed into the pocket and seen to lay flat covering all three potential spaces. The medial aspect of the mesh was sutured to the pubic tubercle using an interrupted 0 Vicryl suture. The lateral aspect of the mesh was sutured to the anterior abdominal wall using an interrupted 0 Vicryl suture. The mesh was tucked into the peritoneal flap and seen to lay flat. The peritoneal flap was then reapproximated using a running 3-0 V-Loc suture. There was a large hole in the peritoneum where the sac was transected and this was also closed using a running 3-0 V-Loc suture. There was no mesh exposed the bowel and the hernia repair was satisfactory. At this point, the robot was undocked and the surgeon scrubbed back in. The remainder of the procedure was performed laparoscopically. The Ray-Rex was removed from the abdomen and the abdomen slowly desufflated. All ports were removed under direct visualization. The patient was placed in neutral position. The 12 mm port fascia was closed with interrupted 0 Vicryl suture. The skin incisions once again infiltrated with local anesthetic and closed with 4-0 Monocryl subcuticular stitches and skin glue. While the abdomen was being desufflated, please note that the air in the scrotum was evacuated until the scrotum was completely flat. Two testicles were palpated in the scrotum. At the end of the case, all sponge, instrument, sharp counts were correct x 2. The Ford catheter was removed and a Kerlix was placed in the right groin and a scrotal support was applied. The patient was awoken from anesthesia, extubated and taken to PACU in stable condition. JOB# [id number] POOL/EVELIN PANG
== END 2019-08-29 20:15 | disposition home or self-care (01) | DRG 352 ==
LOC: ED 17:35 → 3A 22:43 → 3B-SURG 08-29 00:31
PROVIDERS: ADMIT Internal Medicine; ATTEND Internal Medicine
PROC: 0YU54JZ Supplement Right Inguinal Region with Synthetic Substitute, Percutaneous Endoscopic Approach (ICD-10-PCS; principal; 2019-08-29)
PROC: 8E0W4CZ Robotic Assisted Procedure of Trunk Region, Percutaneous Endoscopic Approach (ICD-10-PCS; 2019-08-29)
DX: K40.91 Unilateral inguinal hernia, without obstruction or gangrene, recurrent (principal); F17.200 Nicotine dependence, unspecified, uncomplicated; Z91.018 Allergy to other foods; Z91.013 Allergy to seafood; Z82.49 Family history of ischemic heart disease and other diseases of the circulatory system; Z83.3 Family history of diabetes mellitus; Z72.89 Other problems related to lifestyle
CPT/HCPCS: 36415; 74177; 80048; 80053; 81001; 85025; 93975; G0378; C1781; J0690; J1100; J1170; J2405; J2704; J2710; J3010; J7030; J7120; Q9967

== ENCOUNTER 2020-03-29 20:34 | Emergency (ER) | payer SELFPAY ==
[2020-03-29 20:59] VITALS: BP 132/82
[2020-03-29] MEDS ORDERED: ACETAMINOPHEN 325 MG TAB PO ONE (21:53)
[2020-03-29] MEDS ORDERED: IBUPROFEN 600 MG TAB PO ONE (21:53)
--- NOTE | 2020-03-29 22:10 | XRay Report ---
PA CHEST WITH LEFT RIB DETAIL 3 VIEWS INDICATION / CLINICAL INFORMATION: Fall with left chest pain. COMPARISON: None available. FINDINGS: The heart size and pulmonary vasculature are normal. The lungs are clear. There is no evidence of ple ural effusion or pneumothorax. There are acute fractures of the left eighth and ninth ribs laterally. No other abnormality is seen. IMPRESSION: Acute fractures of the left eighth and ninth ribs. Signer Name: Ananda Escoto MD Signed: 03/29/2020 10:05 PM Workstation Name: [id number]
--- NOTE | 2020-03-29 22:23 | Emergency Department Report ---
ED Fall HPI - General Chief Complaint: Chest Pain Stated Complaint: LT SIDE RIB PAIN Source: patient Mode of arrival: Ambulatory - History of Present Illness Initial Comments: Patient is a 34-year-old -[place] male with no past medical history presents to the ED with complaint of acute onset persistent severe left lateral chest wall and rib pain after he slipped and fell off a bed and landed on a toy furniture by the bed about 5 days ago. Patient states that since that incident, he has been having severe left lateral and rib cage pain worse with ambulation, any movement or deep inhalation. Patient denies hemoptysis, shortness of breath, abdominal pain, nausea, vomiting, loss of consciousness, syncope, seizures, dizziness, back pain, cough or neck pain and head injury. Patient states that he has been taking tmyi-cvp-vancwnn medication with no relief. 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 denies: headache, neck pain, numbness, weakness, shortness of breath, abdominal pain, hematuria, unable to walk, lightheaded, vertigo, confusion - Related Data Previous Rx's Medication Instructions Recorded Last Taken Type oxyCODONE /ACETAMINOPHEN [Percocet 1 tab PO Q6H PRN #20 tablet 08/29/19 Unknown Rx 5/325 mg] Acetaminophen/Codeine [Tylenol 1 tab PO Q6H PRN #10 tab 03/29/20 Unknown Rx /Codeine # 3 tab] Cyclobenzaprine [Flexeril] 10 mg PO Q8H PRN #15 tablet 03/29/20 Unknown Rx Naproxen 500 mg PO Q12H PRN #30 tablet 03/29/20 Unknown Rx Allergies Allergy/AdvReac Type Severity Reaction Status Date / Time cashew nut Allergy Angioedema Verified 08/29/19 05:07 shellfish derived AdvReac Angioedema Verified 08/29/19 05:07 ED Review of Systems ROS: Stated complaint: LT SIDE RIB PAIN Other details as noted in HPI Constitutional: denies: chills, fever Eyes: denies: eye pain, eye discharge, vision change ENT: denies: ear pain, throat pain Respiratory: denies: cough, shortness of breath, wheezing Cardiovascular: chest pain (Left lateral chest wall pain). denies: palpitations Endocrine: no symptoms reported Gastrointestinal: denies: abdominal pain, nausea, diarrhea Genitourinary: denies: urgency, dysuria Musculoskeletal: denies: back pain, joint swelling, arthralgia Skin: denies: rash, lesions Neurological: denies: headache, weakness, paresthesias Psychiatric: denies: anxiety, depression Hematological/Lymphatic: denies: easy bleeding, easy bruising ED Past Medical Hx - Past Medical History Previous Medical History?: Yes Hx Heart Attack/AMI: No Hx Congestive Heart Failure: No Hx Diabetes: No Hx Renal Disease: No Hx Seizures: No Hx Kidney Stones: No Hx Asthma: Yes Hx COPD: No Hx Tuberculosis: No Hx Dementia: No - Surgical History Past Surgical History?: Yes Hx Coronary Stent: No Hx Pacemaker: No Hx Internal Defibrillator: No Additional Surgical History: hernia - Social History Smoking Status: Current Every Day Smoker Substance Use Type: Alcohol - Medications Home Medications: Home Medications Medication Instructions Recorded Confirmed Last Taken Type oxyCODONE /ACETAMINOPHEN [Percocet 1 tab PO Q6H PRN #20 tablet 08/29/19 Unknown Rx 5/325 mg] Acetaminophen/Codeine [Tylenol 1 tab PO Q6H PRN #10 tab 03/29/20 Unknown Rx /Codeine # 3 tab] Cyclobenzaprine [Flexeril] 10 mg PO Q8H PRN #15 tablet 03/29/20 Unknown Rx Naproxen 500 mg PO Q12H PRN #30 tablet 03/29/20 Unknown Rx ED Physical Exam - General Limitations: No Limitations General appearance: alert, in no apparent distress - Head Head exam: Present: atraumatic, normocephalic - Eye Eye exam: Present: normal appearance, PERRL, EOMI Pupils: Present: normal accommodation - ENT ENT exam: Present: normal exam, normal orophraynx, mucous membranes moist, TM's normal bilaterally, normal external ear exam - Neck Neck exam: Present: normal inspection, full ROM - Respiratory Respiratory exam: Present: normal lung sounds bilaterally, chest wall tenderness (Palpable severe left lateral chest wall tenderness). Absent: respiratory distress, wheezes, rales, rhonchi, accessory muscle use, decreased breath s ounds, prolonged expiratory - Cardiovascular Cardiovascular Exam: Present: regular rate, normal rhythm, normal heart sounds. Absent: systolic murmur, diastolic murmur, rubs, gallop - GI/Abdominal GI/Abdominal exam: Present: soft, normal bowel sounds. Absent: tenderness, guarding, hyperactive bowel sounds - Extremities Exam Extremities exam: Present: normal inspection, full ROM, normal capillary refill - Back Exam Back exam: Present: normal inspection, full ROM. Absent: tenderness, CVA tenderness (R), CVA tenderness (L), muscle spasm, paraspinal tenderness, vertebral tenderness - Neurological Exam Neurological exam: Present: alert, oriented X3, CN II-XII intact, normal gait, reflexes normal - Psychiatric Psychiatric exam: Present: normal affect, normal mood - Skin Skin exam: Present: warm, dry, intact, normal color. Absent: rash ED Course Vital Signs 03/29/20 20:51 Temperature 98.1 F Pulse Rate 94 H Respiratory 18 Rate Blood Pressure 132/82 O2 Sat by Pulse 99 Oximetry ED Medical Decision Making - Radiology Data Radiology results: report reviewed, image reviewed Findings [address] [address] XRay Report Signed Patient: SARAH WOODALL II MR#: [id number] : 1985 Acct:[id number] Age/Sex: 34 / M ADM Date: 03/29/20 Loc: ED Attending Dr: Ordering Physician: JUAN VASQUEZ Date of Service: 03/29/20 Procedure(s): XR ribs UNI w PA chest 3+V LT Accession Number(s): [id number] cc: JUAN VASQUEZ Fluoro Time In Minutes: PA CHEST WITH LEFT RIB DETAIL 3 VIEWS INDICATION / CLINICAL INFORMATION: Fall with left chest pain. COMPARISON: None available. FINDINGS: The heart size and pulmonary vasculature are normal. The lungs are clear. There is no evidence of pleural effusion or pneumothorax. There are acute fractures of the left eighth and ninth ribs laterally. No other abnormality is seen. IMPRESSION: Acute fractures of the left eighth and ninth ribs. Signer Name: Ananda Escoto MD Signed: 03/29/2020 10:05 PM Workstation Name: [id number] Transcribed By: RT Dictated By: Ananda Escoto MD Electronically Authenticated By: Ananda Escoto MD Signed Date/Time: 03/29/202204 DD/ 03 TD/TT: - Medical Decision Making This is a 34-year-old -[place] male with no past medical history presents to the ED with complaint of acute onset persistent severe left lateral chest wall and rib pain after he slipped and fell off a bed and landed on a toy furniture by the bed about 5 days ago. Patient states that since that incident, he has been having severe left lateral and rib cage pain worse with ambulation, any movement or deep inhalation. Patient states that he has been taking gauh-dbg-bjuoliy medications for pain with no relief. In the ED, patient is alert and oriented x3 and is not in distress. Patient was treated for pain in the ED and the left rib x-ray with chest showed acute fractures of the left eighth and ninth ribs with no pneumothorax or pleural effusion. On reevaluation, patient's pain is well controlled medications. Patient discharged home on medications and advised to follow-up with his primary care physician in 7 to 10 days for reevaluation. Patient was advised to return to the ED immediately if symptoms get worse. - Differential Diagnosis rib fractures; pneumothorax; rib contusion; chest wall muscle strain Critical care attestation.: If time is entered above; I have spent that time in minutes in the direct care of this critically ill patient, excluding procedure time. ED Disposition Clinical Impression: Muscle strain of anterior chest wall Rib fractures Qualifiers: Encounter type: initial encounter Rib fracture type: multiple ribs Fracture type: closed Laterality: left Qualified Code(s): S22.42XA - Multiple fractures of ribs, left side, initial encounter for closed fracture Contusion of left chest wall Qualifiers: Encounter type: initial encounter Qualified Code(s): S20.212A - Contusion of left front wall of thorax, initial encounter Disposition: TO HOME OR SELFCARE Is pt being admited?: No Does the pt Need Aspirin: No Condition: Stable Instructions: Muscle Strain (ED), Rib Fracture (ED), Chest Pain (ED) Additional Instructions: The x-ray shows that you have to left lateral rib fractures. Therefore take pain medications as needed with food, drink plenty of fluids and follow-up with your primary care physician in 3 to 5 days for reevaluation. Avoid heavy lifting or strenuous physical activity during this time. Return to the ED immediately if symptoms get worse especially if you develop shortness of breath and worsening pain. Prescriptions: Cyclobenzaprine [Flexeril] 10 mg PO Q8H PRN #15 tablet PRN Reason: Muscle Spasm Naproxen 500 mg PO Q12H PRN #30 tablet PRN Reason: Pain , Severe (7-10) Acetaminophen/Codeine [Tylenol /Codeine # 3 tab] 1 tab PO Q6H PRN #10 tab PRN Reason: Pain , Severe (7-10) Referrals: [facility] [Provider Group] - 3-5 Days Time of Disposition: 22:29 Print Language: FINNISH
== END 2020-03-29 23:11 | disposition home or self-care (01) ==
LOC: ED 20:34
DX: S22.42XA Multiple fractures of ribs, left side, initial encounter for closed fracture (principal); S29.012A Strain of muscle and tendon of back wall of thorax, initial encounter; J45.909 Unspecified asthma, uncomplicated; F17.200 Nicotine dependence, unspecified, uncomplicated; F12.10 Cannabis abuse, uncomplicated; Z98.890 Other specified postprocedural states; Z79.899 Other long term (current) drug therapy; Z91.013 Allergy to seafood; Z91.018 Allergy to other foods; X58.XXXA Exposure to other specified factors, initial encounter; Y93.89 Activity, other specified; Y92.89 Other specified places as the place of occurrence of the external cause; Y99.8 Other external cause status

== ENCOUNTER 2020-08-19 09:21 | Emergency (ER) | payer SELFPAY ==
[2020-08-19 09:41] VITALS: BP 128/85
--- NOTE | 2020-08-19 10:04 | Emergency Department Report ---
ED Back Pain/Injury HPI - General Chief Complaint: Back Pain/Injury Stated Complaint: BACK PAIN Time Seen by Provider: 08/19/20 09:55 Source: patient Limitations: No Limitations - History of Present Illness Initial Comments: This very pleasant 34-year-old male presents emerged department chief complaint of lower back pain over the past 4 days. Patient denies any injuries but does report he has been doing frequent lifting at his job. He has a history of scoliosis and is concerned he may be getting worse. He reports pain is 10 out of 10 aggravated with any movement specifically leaning forward, extending his back, getting up from a seated or lying position. Pain is described as dull and throbbing with intermittent sharp pain. He denies any associated fever, chills, night sweats, headache, dizziness, blurry vision, nausea, vomiting, diarrhea, chest pain, shortness of breath, abdominal pain, urinary or bowel incontinence, saddle anesthesia, numbness or weakness in the extremities. - Related Data Previous Rx's Medication Instructions Recorded Last Taken Type oxyCODONE /ACETAMINOPHEN [Percocet 1 tab PO Q6H PRN #20 tablet 08/29/19 Unknown Rx 5/325 mg] Acetaminophen/Codeine [Tylenol 1 tab PO Q6H PRN #10 tab 03/29/20 Unknown Rx /Codeine # 3 tab] Cyclobenzaprine [Flexeril] 10 mg PO Q8H PRN #15 tablet 03/29/20 Unknown Rx Naproxen 500 mg PO Q12H PRN #30 tablet 03/29/20 Unknown Rx Naproxen [Naprosyn] 500 mg PO BID #20 tablet 08/19/20 Unknown Rx methOCARBAMOL [Robaxin TAB] 500 mg PO Q6H PRN #20 tablet 08/19/20 Unknown Rx Allergies Allergy/AdvReac Type Severity Reaction Status Date / Time cashew nut Allergy Angioedema Verified 08/19/20 09:41 shellfish derived AdvReac Angioedema Verified 08/19/20 09:41 ED Review of Systems ROS: Stated complaint: BACK PAIN Other details as noted in HPI Comment: All other systems reviewed and negative Constitutional: denies: chills, fever Eyes: denies: eye pain, eye discharge, vision change ENT: denies: ear pain, throat pain Respiratory: denies: cough, shortness of breath, wheezing Cardiovascular: denies: chest pain, palpitations Endocrine: no symptoms reported Gastrointestinal: denies: abdominal pain, nausea, diarrhea Genitourinary: denies: urgency, dysuria Musculoskeletal: as per HPI, back pain. denies: joint swelling, arthralgia Skin: denies: rash, lesions Neurological: denies: headache, weakness, paresthesias Psychiatric: denies: anxiety, depression Hematological/Lymphatic: denies: easy bleeding, easy bruising ED Past Medical Hx - Past Medical History Previous Medical History?: Yes Hx Heart Attack/AMI: No Hx Congestive Heart Failure: No Hx Diabetes: No Hx Renal Disease: No Hx Seizures: No Hx Kidney Stones: No Hx Asthma: Yes Hx COPD: No Hx Tuberculosis: No Hx Dementia: No - Surgical History Past Surgical History?: Yes Hx Coronary Stent: No Hx Pacemaker: No Hx Internal Defibrillator: No Additional Surgical History: hernia - Social History Smoking Status: Never Smoker Substance Use Type: None - Medications Home Medications: Home Medications Medication Instructions Recorded Confirmed Last Taken Type oxyCODONE /ACETAMINOPHEN [Percocet 1 tab PO Q6H PRN #20 tablet 08/29/19 Unknown Rx 5/325 mg] Acetaminophen/Codeine [Tylenol 1 tab PO Q6H PRN #10 tab 03/29/20 Unknown Rx /Codeine # 3 tab] Cyclobenzaprine [Flexeril] 10 mg PO Q8H PRN #15 tablet 03/29/20 Unknown Rx Naproxen 500 mg PO Q12H PRN #30 tablet 03/29/20 Unknown Rx Naproxen [Naprosyn] 500 mg PO BID #20 tablet 08/19/20 Unknown Rx methOCARBAMOL [Robaxin TAB] 500 mg PO Q6H PRN #20 tablet 08/19/20 Unknown Rx ED Physical Exam - General Limitations: No Limitations General appearance: alert, in no apparent distress - Head Head exam: Present: atraumatic, normocephalic - Eye Eye exam: Present: normal appearance, PERRL, EOMI Pupils: Present: normal accommodation - ENT ENT exam: Present: normal exam, normal orophraynx, mucous membranes moist - Neck Neck exam: Present: normal inspection, full ROM. Absent: tenderness, meningismus - Respiratory Respiratory exam: Present: normal lung sounds bilaterally. Absent: respiratory distress, wheezes, rales, rhonchi, stridor - Cardiovascular Cardiovascular Exam: Present: regular rate, normal rhythm, normal heart sounds. Absent: systolic murmur, diastolic murmur, rubs, gallop - GI/Abdominal GI/Abdominal exam: Present: soft, normal bowel sounds. Absent: distended, tenderness, guarding, rebound, rigid - Rectal Rectal exam: Present: deferred - Extremities Exam Extremities exam: Present: normal inspection, full ROM, normal capillary refill. Absent: tenderness, calf tenderness - Back Exam Back exam: Present: normal inspection, full ROM, tenderness (Tenderness to palpation to the midline low back. ), muscle spasm, paraspinal tenderness, vertebral tenderness, other. Absent: CVA tenderness (R), CVA tenderness (L) - Neurological Exam Neurological exam: Present: alert, oriented X3, CN II-XII intact, normal gait. Absent: motor sensory deficit - Psychiatric Psychiatric exam: Present: normal affect, normal mood - Skin Skin exam: Present: warm, dry, intact, normal color. Absent: rash ED Course Vital Signs 08/19/20 09:35 Temperature 98.4 F Pulse Rate 76 Respiratory 16 Rate Blood Pressure 128/85 O2 Sat by Pulse 100 Oximetry ED Medical Decision Making - Radiology Data Radiology results: report reviewed, image reviewed XRay Report Signed Patient: SARAH WOODALL II MR#: [id number] : 1985 Acct:[id number] Age/Sex: 34 / M ADM Date: 08/19/20 Loc: ED Attending Dr: Ordering Physician: JUAN BOTELLO Date of Service: 08/19/20 Procedure(s): XR spine lumbosacral 2-3V Accession Number(s): [id number] cc: JUAN BOTELLO Fluoro Time In Minutes: LUMBAR SPINE 3 VIEW INDICATION / CLINICAL INFORMATION: acute low back pain, hx of scoliosis. COMPARISON: None available. FINDINGS: BONES/JOINT(S): No acute fracture or subluxation. No significant degenerative changes. SOFT TISSUES: No significant abnormality. ADDITIONAL FINDINGS: None. Signer Name: Nikolay Fierro MD Signed: 08/19/2020 10:54 AM Workstation Name: [id number] Transcribed By: BRENT Dictated By: Nikolay Fierro MD Electronically Authenticated By: Nikolay Fierro MD Signed Date/Time: 08/19/20 1054 - Medical Decision Making Patient nontoxic in no acute distress. Vitals are stable. Patient had no signs of saddle anesthesia, urinary or bowel incontinence or any other red flags for back pain. Recommended outpatient follow-up with orthopedic rx specialist a nd return emerge department change worsening symptoms. Patient verbalized understanding the diagnosis, treatment plan and follow-up instructions all his questions were answered. - Differential Diagnosis strain, sprain, HNP Critical care attestation.: If time is entered above; I have spent that time in minutes in the direct care of this critically ill patient, excluding procedure time. ED Disposition Clinical Impression: Acute low back pain Qualifiers: Back pain laterality: midline Sciatica presence: without sciatica Qualified Code(s): M54.5 - Low back pain Disposition: TO HOME OR SELFCARE Is pt being admited?: No Condition: Stable Instructions: Low Back Strain (ED) Prescriptions: Naproxen [Naprosyn] 500 mg PO BID #20 tablet methOCARBAMOL [Robaxin TAB] 500 mg PO Q6H PRN #20 tablet PRN Reason: Pain , Severe (7-10) Referrals: PRIMARY CARE, [Primary Care Provider] - 3-5 Days [facility] [Provider Group] - 3-5 Days Forms: Work/School Release Form(ED) Time of Disposition: 11:12
--- NOTE | 2020-08-19 10:59 | XRay Report ---
LUMBAR SPINE 3 VIEW INDICATION / CLINICAL INFORMATION: acute low back pain, hx of scoliosis. COMPARISON: None available. FINDINGS: BONES/JOINT(S): No acute fracture or subluxation. No significant degenerative changes. SOFT TISSUES: No significant abnormality. ADDITIONAL FINDINGS: None. Signer Name: Nikolay Fierro MD Signed: 08/19/2020 10:54 AM Workstation Name: [id number]
== END 2020-08-19 11:22 | disposition home or self-care (01) ==
LOC: ED 09:21
DX: M54.5 Low back pain (principal); Z79.899 Other long term (current) drug therapy; Z91.013 Allergy to seafood; Z88.8 Allergy status to other drugs, medicaments and biological substances
CPT/HCPCS: 72100; 99283